=== PATIENT | male | born 1965 | race Caucasian/White ===

== ENCOUNTER → 2016-12-05 | Outpatient (REF) | payer MEDICARE ==
[2016-12-05 13:33] LABS: REASON FOR REVIEW COMPREHENSIVE REVIEW
== END ==
LOC: M LAB REF 12:22
PROVIDERS: ATTEND Internal Medicine Medical Oncology
DX: C85.10 Unspecified B-cell lymphoma, unspecified site (principal)

== ENCOUNTER → 2016-12-27 | Outpatient (REF) | payer MEDICARE ==
[2016-12-27 16:16] LABS: ALBUMIN 4.1 GM/DL (3.2-5.2); ALBUMIN/GLOBULIN RATIO 1.86 (1.00-1.93); ALKALINE PHOSPHATASE 85 U/L (45-117); ALT/SGPT 32 U/L (12-78); ANION GAP 8 MEQ/L (8-16); AST/SGOT 15 U/L (15-37); BILIRUBIN,TOTAL 0.4 MG/DL (0.2-1.0); BLOOD UREA NITROGEN 11 MG/DL (7-18); CALCIUM LEVEL 8.6 MG/DL (8.5-10.1); CARBON DIOXIDE LEVEL 28 MEQ/L (21-32); CHLORIDE LEVEL 107 MEQ/L (98-107); CHOLESTEROL LEVEL 164 MG/DL (<200); CREATININE FOR GFR 0.95 MG/DL (0.70-1.30); GLOMERULAR FILTRATION RATE > 60.0 (>56); GLUCOSE, FASTING 107 MG/DL (70-105); SODIUM LEVEL 143 MEQ/L (136-145); TOTAL PROTEIN 6.3 GM/DL (6.4-8.2); TRIGLYCERIDES LEVEL 286 MG/DL (<150)
== END ==
LOC: M SFHCLACO 08:47
PROVIDERS: ATTEND Physician Assistant
DX: I10 Essential (primary) hypertension (principal); E78.2 Mixed hyperlipidemia; E55.9 Vitamin D deficiency, unspecified

== ENCOUNTER → 2017-06-15 | Outpatient (REF) | payer MEDICARE ==
[2017-06-15 15:27] LABS: BASO % 0.4 % (0.0-1.0); EOS # 0.2 10^3/uL (0.0-0.50); EOS % 1.9 % (0.0-3.0); IMMATURE GRANULOCYTE % 0.4 % (0-0); LYMPH # 1.6 10^3/uL (1.5-4.5); LYMPH % 16.2 % (24.0-44.0); MEAN CORPUSCULAR HEMOGLOBIN 30.6 pg (27.0-33.0); MEAN CORPUSCULAR HGB CONC 33.6 g/dl (32.0-36.5); MEAN CORPUSCULAR VOLUME 91.1 fl (80.0-96.0); MONO # 0.7 10^3/uL (0.0-0.8); MONO % 6.5 % (0.0-5.0); NEUTROPHILS # 7.6 10^3/uL (1.8-7.7); NEUTROPHILS % 74.6 % (36.0-66.0); PLATELET COUNT, AUTOMATED 301 10^3/uL (150-450); RED CELL DISTRIBUTION WIDTH 12.9 % (11.5-14.5); WHITE BLOOD COUNT 10.1 10^3/uL (4.0-10.0)
[2017-06-15 15:28] LABS: ALBUMIN 3.5 GM/DL (3.2-5.2); ALBUMIN/GLOBULIN RATIO 1.75 (1.00-1.93); ALKALINE PHOSPHATASE 71 U/L (45-117); ALT/SGPT 27 U/L (12-78); ANION GAP 9 MEQ/L (8-16); AST/SGOT 14 U/L (7-37); BILIRUBIN,TOTAL 0.3 MG/DL (0.2-1.0); BLOOD UREA NITROGEN 9 MG/DL (7-18); CALCIUM LEVEL 8.8 MG/DL (8.5-10.1); CARBON DIOXIDE LEVEL 28 MEQ/L (21-32); CHLORIDE LEVEL 107 MEQ/L (98-107); CHOLESTEROL LEVEL 122 MG/DL (<200); CREATININE FOR GFR 0.91 MG/DL (0.70-1.30); GLOMERULAR FILTRATION RATE > 60.0 (>56); GLUCOSE, FASTING 96 MG/DL (70-105); MAGNESIUM LEVEL 1.6 MG/DL (1.8-2.4); POTASSIUM SERUM 3.6 MEQ/L (3.5-5.1); SODIUM LEVEL 144 MEQ/L (136-145); TOTAL PROTEIN 5.5 GM/DL (6.4-8.2); TRIGLYCERIDES LEVEL 162 MG/DL (<150)
[2017-06-20 00:07] LABS: Lyme Disease IgG/IgM Antibodie <0.91 ISR (0.00-0.90); Lyme Disease IgM Ab Quantitati <0.80 index (0.00-0.79)
[2017-06-28 14:18] LABS: BENZODIAZEPINES, URINE SCREEN See Final Results ng/mL (Cutoff=200); METHADONE, URINE SCREEN Negative ng/mL (Cutoff=300); pH, URINE 6.6 (4.5-8.9)
== END ==
LOC: M SFHCLACO 09:16
PROVIDERS: ATTEND Physician Assistant
DX: I10 Essential (primary) hypertension (principal); E78.2 Mixed hyperlipidemia; R80.9 Proteinuria, unspecified; E55.9 Vitamin D deficiency, unspecified; Z79.899 Other long term (current) drug therapy; C91.11 Chronic lymphocytic leukemia of B-cell type in remission

== ENCOUNTER 2017-10-15 10:21 | Emergency (ER) | payer MEDICARE ==
[2017-10-15] MEDS: ONDANSETRON 4MG/2ML VIAL (J2405) IV (11:20)
[2017-10-15] MEDS: MORPHINE 4 MG/ML 1ML VIAL (J2270) IV (11:20)
== END 2017-10-15 13:02 | disposition home or self-care (01) ==
LOC: M ED 10:21
DX: S42.402A Unspecified fracture of lower end of left humerus, initial encounter for closed fracture (principal); W19.XXXA Unspecified fall, initial encounter; Y92.099 Unspecified place in other non-institutional residence as the place of occurrence of the external cause; Y93.89 Activity, other specified; I10 Essential (primary) hypertension; Z79.899 Other long term (current) drug therapy; Z88.8 Allergy status to other drugs, medicaments and biological substances
CPT/HCPCS: J2270

== ENCOUNTER → 2017-12-07 | Outpatient (CLI) | payer MEDICARE | LOC: M RAD 09:40 | DX: S53.125D Posterior dislocation of left ulnohumeral joint, subsequent encounter (principal); S42.432A Displaced fracture (avulsion) of lateral epicondyle of left humerus, initial encounter for closed fracture; S42.442A Displaced fracture (avulsion) of medial epicondyle of left humerus, initial encounter for closed fracture; X58.XXXA Exposure to other specified factors, initial encounter; Y92.9 Unspecified place or not applicable | CPT/HCPCS: 73200 ==

== ENCOUNTER 2017-12-14 18:33 | Inpatient (IN) | payer MEDICARE ==
[2017-12-14 19:37] LABS: HEMATOCRIT 42.1 % (42.0-52.0); HEMOGLOBIN 14.6 g/dl (13.5-17.5); MEAN CORPUSCULAR HEMOGLOBIN 30.8 pg (27.0-33.0); MEAN CORPUSCULAR HGB CONC 34.7 g/dl (32.0-36.5); MEAN CORPUSCULAR VOLUME 88.8 fl (80.0-96.0); PLATELET COUNT, AUTOMATED 276 10^3/uL (150-450); RED BLOOD COUNT 4.74 10^6/uL (4.30-6.10); RED CELL DISTRIBUTION WIDTH 11.9 % (11.5-14.5); WHITE BLOOD COUNT 8.2 10^3/uL (4.0-10.0)
[2017-12-14 19:57] LABS: ACETAMINOPHEN LEVEL < 2.0 UG/ML (10.0-30.0); ALBUMIN 3.6 GM/DL (3.2-5.2); ALBUMIN/GLOBULIN RATIO 1.24 (1.00-1.93); ALKALINE PHOSPHATASE 82 U/L (45-117); ALT/SGPT 28 U/L (12-78); ANION GAP 8 MEQ/L (8-16); AST/SGOT 19 U/L (7-37); BILIRUBIN,DIRECT < 0.1 MG/DL (0.0-0.2); BILIRUBIN,TOTAL 0.4 MG/DL (0.2-1.0); BLOOD UREA NITROGEN 12 MG/DL (7-18); CALCIUM LEVEL 8.7 MG/DL (8.5-10.1); CARBON DIOXIDE LEVEL 27 MEQ/L (21-32); CHLORIDE LEVEL 109 MEQ/L (98-107); CREATININE FOR GFR 0.92 MG/DL (0.70-1.30); ETHYL ALCOHOL (ETHANOL) < 0.003 % (0.000-0.010); GLOMERULAR FILTRATION RATE > 60.0 (>56); GLUCOSE, FASTING 82 MG/DL (70-100); POTASSIUM SERUM 3.6 MEQ/L (3.5-5.1); SALICYLATE LEVEL < 1.7 MG/DL (5.0-30.0); SODIUM LEVEL 144 MEQ/L (136-145); TOTAL PROTEIN 6.5 GM/DL (6.4-8.2)
[2017-12-14 20:02] LABS: AMPHETAMINES LEVEL URINE NEGATIVE (NEGATIVE); BARBITURATES URINE NEGATIVE (NEGATIVE); BENZODIAZEPINES URINE POSITIVE (NEGATIVE); CANNABINOIDS URINE POSITIVE (NEGATIVE); COCAINE METABOLITE URINE NEGATIVE (NEGATIVE); METHADONE URINE NEGATIVE (NEGATIVE); OPIATES URINE NEGATIVE (NEGATIVE); PHENCYCLIDINE URINE NEGATIVE (NEGATIVE)
[2017-12-14] MEDS ORDERED: MAALOX 30 ML SUSP *UDC PO (23:30)
[2017-12-14] MEDS ORDERED: MOM 30ML SUSPENSION UDC PO (23:30)
[2017-12-14] MEDS ORDERED: traZODone 50 MG TAB PO (23:30)
[2017-12-14] MEDS ORDERED: ACETAMINOPHEN TAB 650MG DOSE (2X325MG) PO (23:30)
[2017-12-14] MEDS ORDERED: diphenhydrAMINE INJ 50MG/ML VIAL (J1200) As Ordered (23:35)
[2017-12-14] MEDS ORDERED: HALOPERIDOL 5 MG/ML VIAL (J1630) As Ordered (23:36)
[2017-12-14] MEDS ORDERED: LORazepam 2 MG/ML VIAL (J2060) As Ordered (23:36)
[2017-12-14] MEDS: MORPHINE 10 MG/ML 1ML VIAL (J2270) IM (23:45)
[2017-12-14] MEDS ORDERED: HALOPERIDOL 5 MG/ML VIAL (J1630) IM (23:45)
[2017-12-14] MEDS ORDERED: LORazepam 2 MG/ML VIAL (J2060) IM (23:45)
[2017-12-14] MEDS ORDERED: diphenhydrAMINE INJ 50MG/ML VIAL (J1200) IM (23:45)
[2017-12-15] MEDS: diphenhydrAMINE 50 MG CAP PO (01:25)
[2017-12-15] MEDS: LORazepam 2 MG TAB PO (01:26)
[2017-12-15] MEDS: HALOPERIDOL 10 MG TAB PO (01:26)
[2017-12-15] MEDS ORDERED: ALBUTEROL 90 MCG/ACT 8GM HFA INHALER INH (12:00)
[2017-12-15] MEDS: AMOXICILLIN 500 MG CAP PO (13:47)
[2017-12-15] MEDS: hydroCHLOROthiazide 25 MG TAB PO (13:48)
[2017-12-15] MEDS: FAMOTIDINE 20 MG TAB PO (13:48)
[2017-12-15] MEDS: LISINOPRIL 20 MG TAB PO (13:48)
[2017-12-15] MEDS: VITAMIN D 1,000 INTERNATIONAL UNITS TABLET PO (13:48)
[2017-12-15] MEDS: ALLOPURINOL 100 MG TAB PO (13:48)
[2017-12-15] MEDS ORDERED: PRAVASTATIN 20 MG TAB PO (21:00)
[2017-12-15] MEDS ORDERED: OMEPRAZOLE 20 MG CAP PO (21:00)
== END 2017-12-15 15:50 | disposition home or self-care (01) | DRG 880 ==
LOC: M PSY 12-15 01:00 → M ED 18:33 → M ED INP 23:22
DX: F41.1 Generalized anxiety disorder (principal); F32.9 Major depressive disorder, single episode, unspecified; Z79.899 Other long term (current) drug therapy; Z88.8 Allergy status to other drugs, medicaments and biological substances; T42.4X2A Poisoning by benzodiazepines, intentional self-harm, initial encounter; Y92.009 Unspecified place in unspecified non-institutional (private) residence as the place of occurrence of the external cause; M10.9 Gout, unspecified; I10 Essential (primary) hypertension; K21.9 Gastro-esophageal reflux disease without esophagitis; G89.29 Other chronic pain; E78.5 Hyperlipidemia, unspecified; J45.909 Unspecified asthma, uncomplicated; Z87.81 Personal history of (healed) traumatic fracture; H66.92 Otitis media, unspecified, left ear; Z85.6 Personal history of leukemia

== ENCOUNTER → 2018-01-02 | Outpatient (REF) | payer MEDICARE ==
[2018-01-02 14:53] LABS: BASO % 0.6 % (0.0-1.0); EOS # 0.2 10^3/uL (0.0-0.50); EOS % 2.4 % (0.0-3.0); HEMATOCRIT 47.5 % (42.0-52.0); HEMOGLOBIN 16.3 g/dl (13.5-17.5); IMMATURE GRANULOCYTE % 0.3 % (0-3.0); LYMPH # 1.5 10^3/uL (1.5-4.5); LYMPH % 21.1 % (24.0-44.0); MEAN CORPUSCULAR HEMOGLOBIN 31.3 pg (27.0-33.0); MEAN CORPUSCULAR HGB CONC 34.3 g/dl (32.0-36.5); MEAN CORPUSCULAR VOLUME 91.3 fl (80.0-96.0); MONO # 0.5 10^3/uL (0.0-0.8); NEUTROPHILS # 4.8 10^3/uL (1.8-7.7); NEUTROPHILS % 68.6 % (36.0-66.0); PLATELET COUNT, AUTOMATED 271 10^3/uL (150-450); RED CELL DISTRIBUTION WIDTH 13.1 % (11.5-14.5)
[2018-01-02 15:11] LABS: ALBUMIN 4.1 GM/DL (3.2-5.2); ALBUMIN/GLOBULIN RATIO 1.86 (1.00-1.93); ALKALINE PHOSPHATASE 99 U/L (45-117); ALT/SGPT 40 U/L (12-78); ANION GAP 11 MEQ/L (8-16); AST/SGOT 35 U/L (7-37); BILIRUBIN,TOTAL 0.8 MG/DL (0.2-1.0); BLOOD UREA NITROGEN 11 MG/DL (7-18); CALCIUM LEVEL 8.6 MG/DL (8.5-10.1); CARBON DIOXIDE LEVEL 24 MEQ/L (21-32); CHLORIDE LEVEL 108 MEQ/L (98-107); CHOLESTEROL LEVEL 175 MG/DL (<200); CHOLESTEROL RISK RATIO 2.916 (<5); CREATININE FOR GFR 0.83 MG/DL (0.70-1.30); GLOMERULAR FILTRATION RATE > 60.0 (>56); GLUCOSE, FASTING 88 MG/DL (70-100); HDL CHOLESTEROL 60 MG/DL (>40); LDL CHOLESTEROL 72.6 MG/DL (<100); NON-HDL-C 115 MG/DL; POTASSIUM SERUM 3.7 MEQ/L (3.5-5.1); SODIUM LEVEL 143 MEQ/L (136-145); TOTAL PROTEIN 6.3 GM/DL (6.4-8.2); TRIGLYCERIDES LEVEL 212 MG/DL (<150)
[2018-01-02 15:20] LABS: TOTAL 25(OH) VITAMIN D 23.5 NG/ML (30.0-100.0)
== END ==
LOC: M SFHCLACO 08:37
DX: I10 Essential (primary) hypertension (principal); E78.2 Mixed hyperlipidemia; E55.9 Vitamin D deficiency, unspecified; Z79.899 Other long term (current) drug therapy
CPT/HCPCS: 80053

== ENCOUNTER 2022-05-30 13:07 | Inpatient (IN) | payer MEDICARE ==
[~2022-05-30] VITALS: Ht 177.8 cm; Wt 86.3 kg
[~2022-05-30 13:07] MED LIST: ALLO10TA PO; AMIT50TA PO; AMOX500C PO; ATOR1TAB19 PO; ATOR40TA75 PO; CENT1TAB PO; CLON0.5T2 PO; GABA-282 PO; LISI20TA37 PO; NORC1TAB7 PO; OMEP40CA4 PO; PERC5TAB12 PO; PRAV40TA2 PO; RANI300C PO; RANI300T PO; SIMV-253 PO; TRAM50TA2 PO; VALI10TA PO; VENTAER INH; VISI0.054 OU; VITA100093 PO; VITA200016 PO; VITA400T15 PO; ZOLO100T PO
[2022-05-30 15:00] LABS: RSV AMPLIFICATION NEGATIVE (NEGATIVE)
[2022-05-30] MEDS ORDERED: NS 1,000 ML IV ONE (18:25)
[2022-05-30] MEDS ORDERED: IPRATROPIUM 0.5MG/ALBUTEROL 2.5MG INH SOL UD 3ML (DUONEB) NEB ONE (18:25)
[2022-05-30] MEDS ORDERED: IBUPROFEN 800 MG TAB PO ONE (18:25)
[2022-05-30] MEDS ORDERED: methylPREDNISolone 125MG 2ML VIAL IV ONE (18:25)
[2022-05-30 19:34] LABS: BASO # 0.1 10^3/uL (0.0-0.2); BASO % 0.5 % (0.0-1.0); EOS % 0.1 % (0.0-3.0); HEMOGLOBIN 14.3 g/dl (13.5-17.5); LYMPH # 1.6 10^3/uL (1.5-5.0); LYMPH % 9.5 % (24.0-44.0); MEAN CORPUSCULAR HEMOGLOBIN 31.1 pg (27.0-33.0); MEAN CORPUSCULAR HGB CONC 34.9 g/dl (32.0-36.5); MEAN CORPUSCULAR VOLUME 89.1 fl (80.0-96.0); MONO % 16.7 % (2.0-8.0); NEUTROPHILS # 12.1 10^3/uL (1.5-8.5); NEUTROPHILS % 72.7 % (36.0-66.0); PLATELET COUNT, AUTOMATED 395 10^3/uL (150-450); WHITE BLOOD COUNT 16.6 10^3/uL (4.0-10.0)
[2022-05-30 19:37] LABS: CALCIUM LEVEL 9.2 MG/DL (8.5-10.1); CREATININE FOR GFR 1.33 MG/DL (0.70-1.30); GLOMERULAR FILTRATION RATE 58.8 (>56); POTASSIUM SERUM 3.6 MEQ/L (3.5-5.1)
[2022-05-30] MEDS ORDERED: LevoFLOXacin 750 MG TABLET PO ONE (19:50)
[2022-05-30 20:10] LABS: MONO # 2.8 10^3/uL (0.0-0.8)
[2022-05-30] MEDS: AMITRIPTYLINE 50 MG TAB PO SCH (21:00)
[2022-05-30] MEDS ORDERED: ACETAMINOPHEN TAB 650MG DOSE (2X325MG) PO PRN (22:25)
[2022-05-30] MEDS ORDERED: NS 500 ML IV ONE (22:25)
[2022-05-30] MEDS ORDERED: VITA100093 PO (22:42)
[2022-05-30] MEDS ORDERED: HOME MED LIST COMPLETE! XX SCH (22:45)
[2022-05-30] MEDS ORDERED: guaiFENesin ER 600 MG TAB PO ONE (23:00)
[2022-05-30] MEDS ORDERED: COMBIVENT RESPIMAT 100-20MCG INHALER 4GM INH PRN (23:00)
[2022-05-30] MEDS ORDERED: diazePAM 10 MG TAB PO PRN (23:15)
[2022-05-30] MEDS ORDERED: traMADol 50 MG TAB PO PRN (23:15)
[2022-05-30] MEDS: NS 1,000 ML IV SCH (23:27)
[2022-05-30] MEDS: OMEPRAZOLE 20MG CAP PO SCH (23:28)
[2022-05-31] MEDS ORDERED: guaiFENesin DM LIQ 10ML UD PO PRN (02:00)
[2022-05-31] MEDS: NS 1,000 ML IV SCH (04:40)
[2022-05-31 06:18] LABS: HEMATOCRIT 37.9 % (42.0-52.0); HEMOGLOBIN 12.9 g/dl (13.5-17.5); MEAN CORPUSCULAR HEMOGLOBIN 31.2 pg (27.0-33.0); MEAN CORPUSCULAR VOLUME 91.5 fl (80.0-96.0); PLATELET COUNT, AUTOMATED 349 10^3/uL (150-450); RED BLOOD COUNT 4.14 10^6/uL (4.30-6.10); WHITE BLOOD COUNT 11.6 10^3/uL (4.0-10.0)
[2022-05-31 06:50] LABS: BLOOD UREA NITROGEN 20 MG/DL (7-18); CALCIUM LEVEL 8.2 MG/DL (8.5-10.1); CARBON DIOXIDE LEVEL 22 MEQ/L (21-32); CHLORIDE LEVEL 107 MEQ/L (98-107); CREATININE FOR GFR 1.22 MG/DL (0.70-1.30); GLOMERULAR FILTRATION RATE > 60.0 (>56); GLUCOSE, FASTING 192 MG/DL (70-100); MAGNESIUM LEVEL 1.8 MG/DL (1.8-2.4); POTASSIUM SERUM 3.6 MEQ/L (3.5-5.1); SODIUM LEVEL 141 MEQ/L (136-145)
[2022-05-31] MEDS ORDERED: guaiFENesin ER 600 MG TAB PO SCH (09:00)
[2022-05-31] MEDS: ATORVASTATIN 20 MG TAB PO SCH ×2 (09:03→09:08)
[2022-05-31] MEDS: GABAPENTIN 300 MG CAP PO SCH ×3 (09:03→21:32)
[2022-05-31] MEDS: clonazePAM 0.5 MG TAB PO SCH (09:05)
[2022-05-31] MEDS: ENOXAPARIN 40MG/0.4ML SYRINGE (J1650 PER 10MG) SC SCH (13:07)
[2022-05-31] MEDS: allopurinoL 100 MG TAB PO SCH (13:07)
[2022-05-31 14:11] VITALS: BP 143/84
[2022-05-31 18:20] LABS: TOTAL PROTEIN,RANDOM URINE 56.1 MG/DL (0.0-12.0)
[2022-05-31] MEDS: LevoFLOXacin IV 750 MG in IV 1 EA IV SCH (21:31)
[2022-05-31] MEDS: AMITRIPTYLINE 50 MG TAB PO SCH (21:32)
[2022-05-31] MEDS: OMEPRAZOLE 20MG CAP PO SCH (21:32)
[2022-05-31 22:00] VITALS: BP 144/56
[2022-05-31 22:53] LABS: APPEARANCE, URINE MANUAL CLEAR (CLEAR); BILIRUBIN, URINE MANUAL NEGATIVE (NEGATIVE); BLOOD URINE MANUAL NEGATIVE (NEGATIVE); COLOR, URINE MANUAL YELLOW (YELLOW); GLUCOSE, URINE (UA) MANUAL NEGATIVE (NEGATIVE); KETONE, URINE MANUAL NEGATIVE (NEGATIVE); LEUKOCYTE ESTERASE, URINE MAN NEGATIVE (NEGATIVE); NITRITE, URINE MANUAL NEGATIVE (NEGATIVE); UROBILINOGEN, URINE MANUAL NORMAL (NORMAL)
[2022-05-31 22:54] LABS: PROTEIN, URINE MANUAL 1+ mg/dL (NEGATIVE)
[2022-05-31 23:25] LABS: AMORPHOUS SEDIMENT, URINE SMALL AMOUNT (NEGATIVE); BACTERIA, URINE NONE SEEN; MUCUS, URINE MOD AMOUNT (NEGATIVE); SQUAMOUS EPITHELIAL CELL URINE SMALL AMOUNT /hpf (SMALL AMT)
[2022-06-01 06:00] VITALS: BP 125/81
[2022-06-01 06:14] LABS: BASO % 0.2 % (0.0-1.0); EOS % 0.2 % (0.0-3.0); HEMATOCRIT 38.5 % (42.0-52.0); HEMOGLOBIN 13.3 g/dl (13.5-17.5); LYMPH # 1.9 10^3/uL (1.5-5.0); LYMPH % 8.6 % (24.0-44.0); MEAN CORPUSCULAR HEMOGLOBIN 31.5 pg (27.0-33.0); MEAN CORPUSCULAR HGB CONC 34.5 g/dl (32.0-36.5); MEAN CORPUSCULAR VOLUME 91.2 fl (80.0-96.0); MONO # 1.5 10^3/uL (0.0-0.8); MONO % 6.9 % (2.0-8.0); NEUTROPHILS # 18.2 10^3/uL (1.5-8.5); PLATELET COUNT, AUTOMATED 405 10^3/uL (150-450); RED BLOOD COUNT 4.22 10^6/uL (4.30-6.10); WHITE BLOOD COUNT 21.9 10^3/uL (4.0-10.0)
[2022-06-01 06:53] LABS: BLOOD UREA NITROGEN 23 MG/DL (7-18); CALCIUM LEVEL 8.8 MG/DL (8.5-10.1); CARBON DIOXIDE LEVEL 23 MEQ/L (21-32); CHLORIDE LEVEL 113 MEQ/L (98-107); CREATININE FOR GFR 0.99 MG/DL (0.70-1.30); GLOMERULAR FILTRATION RATE > 60.0 (>56); GLUCOSE, FASTING 97 MG/DL (70-100); MAGNESIUM LEVEL 1.6 MG/DL (1.8-2.4); PHOSPHORUS LEVEL 4.2 MG/DL (2.5-4.9); SODIUM LEVEL 144 MEQ/L (136-145)
[2022-06-01] MEDS: ATORVASTATIN 20 MG TAB PO SCH (08:27)
[2022-06-01] MEDS: clonazePAM 0.5 MG TAB PO SCH (08:27)
[2022-06-01] MEDS: GABAPENTIN 300 MG CAP PO SCH ×3 (08:27→20:21)
[2022-06-01] MEDS: ENOXAPARIN 40MG/0.4ML SYRINGE (J1650 PER 10MG) SC SCH (08:28)
[2022-06-01] MEDS: MAG SULF 1GM/100ML (MAG RUN) 1 GM in IV 1 EA IV SCH ×2 (08:28→10:03)
[2022-06-01] MEDS: allopurinoL 100 MG TAB PO SCH (08:28)
[2022-06-01 13:30] VITALS: BP 118/72
[2022-06-01 16:09] LABS: MYCOPLASMA PNEUMONIAE IgG <100 U/mL (0-99); MYCOPLASMA PNEUMONIAE IgM <770 U/mL (0-769)
[2022-06-01] MEDS ORDERED: PROCHLORPERAZINE 10MG 2ML VIAL IV PRN (19:40)
[2022-06-01 20:11] VITALS: BP 138/86
[2022-06-01] MEDS: LevoFLOXacin IV 750 MG in IV 1 EA IV SCH (20:20)
[2022-06-01] MEDS: OMEPRAZOLE 20MG CAP PO SCH (20:21)
[2022-06-01] MEDS: AMITRIPTYLINE 50 MG TAB PO SCH (20:21)
[2022-06-02 03:44] VITALS: O2SAT 95
[2022-06-02 06:00] VITALS: BP 139/81
[2022-06-02 06:16] LABS: BASO # 0.1 10^3/uL (0.0-0.2); BASO % 0.4 % (0.0-1.0); EOS # 0.1 10^3/uL (0.0-0.5); EOS % 0.9 % (0.0-3.0); HEMATOCRIT 39.8 % (42.0-52.0); HEMOGLOBIN 13.3 g/dl (13.5-17.5); LYMPH # 1.9 10^3/uL (1.5-5.0); LYMPH % 13.9 % (24.0-44.0); MEAN CORPUSCULAR HEMOGLOBIN 31.1 pg (27.0-33.0); MEAN CORPUSCULAR HGB CONC 33.4 g/dl (32.0-36.5); MEAN CORPUSCULAR VOLUME 93.2 fl (80.0-96.0); MONO # 1.2 10^3/uL (0.0-0.8); MONO % 8.4 % (2.0-8.0); NEUTROPHILS # 10.5 10^3/uL (1.5-8.5); NEUTROPHILS % 75.3 % (36.0-66.0); PLATELET COUNT, AUTOMATED 419 10^3/uL (150-450); RED BLOOD COUNT 4.27 10^6/uL (4.30-6.10)
[2022-06-02 06:51] LABS: BLOOD UREA NITROGEN 19 MG/DL (7-18); CALCIUM LEVEL 8.1 MG/DL (8.5-10.1); CARBON DIOXIDE LEVEL 24 MEQ/L (21-32); CHLORIDE LEVEL 112 MEQ/L (98-107); CREATININE FOR GFR 0.99 MG/DL (0.70-1.30); GLOMERULAR FILTRATION RATE > 60.0 (>56); GLUCOSE, FASTING 85 MG/DL (70-100); MAGNESIUM LEVEL 1.8 MG/DL (1.8-2.4); PHOSPHORUS LEVEL 3.3 MG/DL (2.5-4.9); POTASSIUM SERUM 3.9 MEQ/L (3.5-5.1); SODIUM LEVEL 145 MEQ/L (136-145)
[2022-06-02 07:50] VITALS: BP 128/92
[2022-06-02] MEDS: ENOXAPARIN 40MG/0.4ML SYRINGE (J1650 PER 10MG) SC SCH (08:29)
[2022-06-02] MEDS: allopurinoL 100 MG TAB PO SCH (08:30)
[2022-06-02] MEDS: clonazePAM 0.5 MG TAB PO SCH (08:30)
[2022-06-02] MEDS: GABAPENTIN 300 MG CAP PO SCH (08:30)
[2022-06-02] MEDS: ATORVASTATIN 20 MG TAB PO SCH (08:30)
[2022-06-02] MEDS ORDERED: FLUBLOK(EGG FREE)(QUAD)INFLUENZA VACC 0.5ML SYRINGE 18YRS & OLDER IM.IMMUN ONE (09:00)
[2022-06-02] MEDS ORDERED: LEVO1TAB40 PO (09:34)
[2022-06-02] MEDS ORDERED: LevoFLOXacin 750 MG TABLET PO SCH (20:00)
[2022-06-03 15:07] LABS: BODY FLUID CULTURE Not indicated. (.); LEGIONELLA ANTIGEN URINE Negative (Negative); ORGANISM ID Not indicated. (.); SPECIMEN SOURCE Urine (.); URINE STREP PNEUMONIAE ANTIGEN Negative (Negative)
[2022-06-03 16:08] LABS: CHLAMYDIA PNEUMONIAE IgG <1:100 (< 1:100); CHLAMYDIA PNEUMONIAE IgM <1:10 (< 1:10); CHLAMYDIA PSITTACI IgG <1:100 (< 1:100); CHLAMYDIA PSITTACI IgM <1:10 (< 1:10); CHLAMYDIA TRACHOMATIS IgG <1:100 (< 1:100); CHLAMYDIA TRACHOMATIS IgM <1:10 (< 1:10)
== END 2022-06-02 12:30 | disposition home or self-care (01) | DRG 194 ==
LOC: M ED 13:07 → M ED INP 22:25 → ENRESERV 05-31 13:32 → M MSPAV 05-31 14:06
PROVIDERS: ADMIT Internal Medicine; ATTEND Internal Medicine
DX: J18.9 Pneumonia, unspecified organism (principal); N17.9 Acute kidney failure, unspecified; C91.11 Chronic lymphocytic leukemia of B-cell type in remission; I10 Essential (primary) hypertension; E78.5 Hyperlipidemia, unspecified; K21.9 Gastro-esophageal reflux disease without esophagitis; F41.9 Anxiety disorder, unspecified; F12.90 Cannabis use, unspecified, uncomplicated; D72.829 Elevated white blood cell count, unspecified; F32.A Depression, unspecified; M10.9 Gout, unspecified; J45.909 Unspecified asthma, uncomplicated; Z88.8 Allergy status to other drugs, medicaments and biological substances; Z79.899 Other long term (current) drug therapy

== ENCOUNTER → 2022-06-22 | Outpatient (CLI) | payer MEDICARE ==
[~2022-06-22] MED LIST changes: +LEVO1TAB40 PO
== END ==
LOC: M ADAMS 14:25
PROVIDERS: ATTEND Physician Assistant Medical
DX: M54.42 Lumbago with sciatica, left side (principal)

== ENCOUNTER 2022-09-13 11:38 | Emergency (ER) | payer MEDICARE ==
[~2022-09-13] VITALS: Ht 177.8 cm; Wt 85.5 kg
[2022-09-13] MEDS ORDERED: CLAR5TAB7 PO (13:28)
[2022-09-13] MEDS ORDERED: AUGM500T34 PO (13:28)
[2022-09-13 13:39] VITALS: BP 146/95
[2022-09-13 14:10] LABS: RSV AMPLIFICATION NEGATIVE (NEGATIVE)
== END 2022-09-13 13:40 | disposition home or self-care (01) ==
LOC: M ED 13:29
DX: J01.10 Acute frontal sinusitis, unspecified (principal); J45.909 Unspecified asthma, uncomplicated; I10 Essential (primary) hypertension; Z88.8 Allergy status to other drugs, medicaments and biological substances; Z79.899 Other long term (current) drug therapy

== ENCOUNTER → 2022-09-30 | Outpatient (REF) | payer MEDICARE ==
[~2022-09-30] MED LIST changes: +AUGM500T34 PO; +CLAR5TAB7 PO
== END ==
LOC: M SFHCADAM 12:27
PROVIDERS: ATTEND Physician Assistant
DX: J06.9 Acute upper respiratory infection, unspecified (principal)

== ENCOUNTER → 2023-01-18 | Outpatient (CLI) | payer MEDICARE | LOC: M ADAMS 11:22 | PROVIDERS: ATTEND Physician Assistant Medical | DX: J84.10 Pulmonary fibrosis, unspecified (principal); R06.2 Wheezing; Z87.891 Personal history of nicotine dependence ==